=== PATIENT | female | born 1975 | race African-American/Black ===

== ENCOUNTER → 2017-11-05 | Outpatient (CLI) | payer BC ==
[~2017-11-05] MED LIST: IOHEXOL 300 MG/ML 100ML VIAL. IV
== END | disposition home or self-care (01) ==
LOC: CT 12:49
DX: I26.99 Other pulmonary embolism without acute cor pulmonale (principal); Z86.711 Personal history of pulmonary embolism
CPT/HCPCS: 71275

== ENCOUNTER → 2017-11-05 | Outpatient (CLI) | payer BC ==
[~2017-11-05] MED LIST changes: +IOHEXOL 300 MG/ML 100ML VIAL.; -IOHEXOL 300 MG/ML 100ML VIAL. IV
== END | disposition home or self-care (01) ==
LOC: US 12:53
DX: I82.421 Acute embolism and thrombosis of right iliac vein (principal); Z86.718 Personal history of other venous thrombosis and embolism; Z86.711 Personal history of pulmonary embolism
CPT/HCPCS: 93971